=== PATIENT | female | born 1935 | race Caucasian/White ===

== ENCOUNTER 2023-09-09 15:32 | Emergency (ER) | payer MEDICARE ==
--- NOTE | 2023-09-09 15:41 | ERPHSYRPT ---
- History of Present Illness Time Seen by Provider: 09/09/23 15:41 Source: patient Exam Limitations: no limitations Physician History: This is an 88-year-old white female patient who has a history of atrial fibrillation on Eliquis and verapamil, hypertension and gastroesophageal reflux disease and was diagnosed with left-sided pneumonia 6 days ago. She is on Augmentin and doxycycline orally. Overall, patient states that her symptoms have improved. 1 example is she is breathing better and she does not any longer have a cough. However she feels weak and has no appetite. She denies chest pain. She denies shortness of breath and she denies body aches. Her room air oxygenation saturation level is 97 to 98% on room air. Timing/Duration: day(s) (6) Severity: mild (To moderate) Associated Symptoms: weakness, No nausea, No vomiting, No abdominal pain, No shortness of breath, No chest pain, No fever Allergies/Adverse Reactions: No Known Drug Allergies Allergy (Verified 09/09/23 15:52) Home Medications: Amoxicillin/Potassium Clav [Amox Tr-K Clv 875-125 mg Tab] 1 tab PO BID 09/09/23 [History] Apixaban [Eliquis] 1 tab PO BID 09/09/23 [History] Benzonatate 1 cap PO Q8H PRN PRN 09/09/23 [History] Clopidogrel Bisulfate [Plavix] 1 tab PO DAILY 09/09/23 [History] Doxycycline Hyclate 100 mg [Vibramycin 100 MG] 1 cap PO BID 09/09/23 [History] Fluoxetine HCl 1 tab PO DAILY 09/09/23 [History] Hydroxyzine HCl 25 mg [Atarax 25 mg] 1 tab PO HS PRN 09/09/23 [History] Ipratropium/Albuterol Sulfate [Combivent Respimat Inhal [place]] 1 puff PO Q4HWA 09/09/23 [History] Losartan Potassium [Cozaar] 1 tab PO DAILY 09/09/23 [History] Omeprazole 1 cap PO BID 09/09/23 [History] Verapamil HCl [Verapamil Sr] 1 tab PO DAILY 09/09/23 [History] Travel Risk - International Travel Have you traveled outside of the country in past 3 weeks: No - Coronavirus Screening Are you exhibiting any of the following symptoms?: No Close contact with a COVID-19 positive Pt in past 14-21 Days: No - Review of Systems Constitutional: Weakness Eyes: No Symptoms Ears, Nose, & Throat: No Symptoms Respiratory: No Symptoms Cardiac: No Symptoms Abdominal/Gastrointestinal: Appetite Changes, No Abdominal Pain, No Nausea, No Vomiting, No Diarrhea Genitourinary Symptoms: No Symptoms Musculoskeletal: No Symptoms Skin: No Symptoms Neurological: No Symptoms Psychological: No Symptoms Endocrine: No Symptoms Hematologic/Lymphatic: No Symptoms Immunological/Allergic: No Symptoms All Other Systems: Reviewed and Negative - Past Medical History Pertinent Past Medical History: Yes - Past Surgical History Past Surgical History: Yes - Nursing Vital Signs Nursing Vital Signs: Initial Vital Signs Temperature 98.5 F 09/09/23 16:00 Pulse Rate 81 09/09/23 16:00 Respiratory Rate 21 09/09/23 16:00 Blood Pressure 114/76 09/09/23 16:00 O2 Sat by Pulse Oximetry 98 09/09/23 16:00 Pain Scale Pain Intensity 0 - Physical Exam General Appearance: no apparent distress, alert Eye Exam: PERRL/EOMI, post op pupil defect (L) Ears, Nose, Throat Exam: normal ENT inspection, moist mucous membranes Neck Exam: normal inspection, non-tender, supple, full range of motion Respiratory Exam: normal breath sounds, lungs clear, airway intact, No chest tenderness, No respiratory distress Cardiovascular Exam: regular rate/rhythm, normal heart sounds, normal peripheral pulses Gastrointestinal/Abdomen Exam: soft, normal bowel sounds, No tenderness Pelvic Exam: not done Rectal Exam: not done Back Exam: normal inspection, normal range of motion, No CVA tenderness, No vertebral tenderness Extremity Exam: normal inspection, normal range of motion, pelvis stable Neurologic Exam: alert, oriented x 3, cooperative, operations officer II-XII nml as tested, normal mood/affect, nml cerebellar function, nml station & gait, sensation nml Skin Exam: normal color, warm, dry Lymphatic Exam: No adenopathy SpO2 Interpretation: normal O2 Delivery: Room Air - Course Nursing assessment & vital signs reviewed: Yes EKG Interpreted by Me: RATE (78), NORMAL AXIS, LAFB, NORMAL INTERVALS, Right Bundle Branch Block, Other (No acute ischemic changes on today's twelve-lead EKG.) Ordered Tests: Active Orders 24 hr Category Date Time Status Narcotics Agent STAT Care 09/09/23 16:24 Active EKG-ER Only STAT Care 09/09/23 16:23 Active IV Insertion STAT Care 09/09/23 16:23 Active Pulse Oximetry (ED) STAT Care 09/09/23 16:23 Active CBC W DIFF Stat Lab 09/09/23 16:25 Completed CMP Stat Lab 09/09/23 16:35 Completed CULTURE,URINE Stat Lab 09/09/23 17:39 Received MAGNESIUM Stat Lab 09/09/23 16:35 Completed MONO SCREEN Stat Lab 09/09/23 Completed NT PRO BNPII Stat Lab 09/09/23 16:35 Completed TROPONIN Q4H Lab 09/09/23 16:35 Completed TROPONIN Q4H Lab 09/09/23 20:30 Ordered TROPONIN Q4H Lab 09/10/23 00:30 Ordered UA W/RFX UR CULTURE Stat Lab 09/09/23 17:39 Completed Medication Summary Discontinued Medications Generic Name Dose Route Start Last Admin Trade Name Freq PRN Reason Stop Dose Admin Sodium Chloride 1,000 mls @ 999 mls/hr 09/09/23 16:23 09/09/23 17:47 Sodium Chloride 0.9% 1000 Ml IV 09/09/23 17:23 Infused .Q1H1M STA Infusion Sodium Chloride Confirm 09/09/23 16:45 Sodium Chloride 0.9% 1000 Ml Administered 09/09/23 16:46 Dose 1,000 mls @ ud .ROUTE .STK-MED ONE Lab/Rad Data: Laboratory Result Diagrams 09/09/23 16:25 09/09/23 16:35 Laboratory Results 09/09/23 09/09/23 09/09/23 Range/Units Unknown 17:39 17:00 WBC (4.0-10.5) x10^3/uL RBC (4.1-5.4) x10^6/uL Hgb (12.0-16.0) g/dL Hct (35-47) % MCV (78-100) fL MCH (26-32) pg MCHC (32-36) g/dL RDW (11.5-14.0) % Plt Count (150-450) x10^3/uL MPV (7.5-11.0) fL Gran % (36.0-66.0) % Immature Gran % (Auto) (0.00-0.4) % Nucleat RBC Rel Count (0.00-0.1) % Eos # (Auto) (0-0.5) x10^3/uL Immature Gran # (Auto) (0.00-0.03) x10^3u/L Absolute Lymphs (auto) (1.0-4.6) x10^3/uL Absolute Monos (auto) (0.0-1.3) x10^3/uL Absolute Nucleated RBC (0.00-0.01) x10^3u/L Lymphocytes % (24.0-44.0) % Monocytes % (0.0-12.0) % Eosinophils % (0.00-5.0) % Basophils % (0.0-0.4) % Absolute Granulocytes (1.4-6.9) x10^3/uL Basophils # (0-0.4) x10^3/uL Sodium (137-145) mmol/L Potassium (3.5-5.1) mmol/L Chloride (98-107) mmol/L Carbon Dioxide (22-30) mmol/L Anion Gap (5-15) MEQ/L BUN (7-17) mg/dL Creatinine (0.52-1.04) mg/dL Estimated GFR ML/MIN Glucose (74-106) mg/dL Calcium (8.4-10.2) mg/dL Magnesium (1.6-2.3) mg/dL Total Bilirubin (0.2-1.3) mg/dL AST (14-36) U/L ALT (0-35) U/L Alkaline Phosphatase (38-126) U/L Troponin I (0.000-0.034) ng/mL NT-Pro-B Natriuret Pep (<300) pg/mL Serum Total Protein (6.3-8.2) g/dL Albumin (3.5-5.0) g/dL Urine Color Yellow (Yellow) Urine Appearance Cloudy A (Clear) Urine pH 6.0 (4.6-8.0) Ur Specific [place] 1.020 (1.005-1.030) Urine Protein Trace A (Negative) Urine Glucose (UA) Negative (Negative) mg/dL Urine Ketones Negative (Negative) Urine Blood Negative (Negative) Urine Nitrite Negative (Negative) Urine Bilirubin Negative (Negative) Urine Urobilinogen 0.2 (0.2) mg/dL Ur Leukocyte Esterase Trace A (Negative) U Hyaline Cast (Auto) NONE SEEN (0-2) /LPF Urine Microscopic RBC 0-2 (0-5) /HPF Urine Microscopic WBC 3-5 (0-5) /HPF Ur Epithelial Cells Many A (None Seen) /HPF Urine Bacteria None Seen (None Seen) /HPF Urine Yeast (Budding) Rare A (None Seen) /HPF Urine Culture Reflexed YES (NO) Monoscreen NEGATIVE (NEGATIVE) Influenza Type A Ag NEGATIVE (NEGATIVE) Influenza Type B Ag NEGATIVE (NEGATIVE) RSV (PCR) NEGATIVE (NEGATIVE) SARS-CoV-2 (PCR) NEGATIVE (NEGATIVE) 09/09/23 09/09/23 09/09/23 Range/Units 16:35 16:35 16:25 WBC 8.3 (4.0-10.5) x10^3/uL RBC 3.78 L (4.1-5.4) x10^6/uL Hgb 11.3 L (12.0-16.0) g/dL Hct 34.9 L (35-47) % MCV 92.3 (78-100) fL MCH 29.9 (26-32) pg MCHC 32.4 (32-36) g/dL RDW 12.8 (11.5-14.0) % Plt Count 331 (150-450) x10^3/uL MPV 10.0 (7.5-11.0) fL Gran % 81.8 H (36.0-66.0) % Immature Gran % (Auto) 4.7 H (0.00-0.4) % Nucleat RBC Rel Count 0.0 (0.00-0.1) % Eos # (Auto) 0.05 (0-0.5) x10^3/uL Immature Gran # (Auto) 0.39 H (0.00-0.03) x10^3u/L Absolute Lymphs (auto) 0.70 L (1.0-4.6) x10^3/uL Absolute Monos (auto) 0.34 (0.0-1.3) x10^3/uL Absolute Nucleated RBC 0.00 (0.00-0.01) x10^3u/L Lymphocytes % 8.4 L (24.0-44.0) % Monocytes % 4.1 (0.0-12.0) % Eosinophils % 0.6 (0.00-5.0) % Basophils % 0.4 (0.0-0.4) % Absolute Granulocytes 6.82 (1.4-6.9) x10^3/uL Basophils # 0.03 (0-0.4) x10^3/uL Sodium 139 (137-145) mmol/L Potassium 4.8 (3.5-5.1) mmol/L Chloride 111 H (98-107) mmol/L Carbon Dioxide 21 L (22-30) mmol/L Anion Gap 12.3 (5-15) MEQ/L BUN 23 H (7-17) mg/dL Creatinine 1.06 H (0.52-1.04) mg/dL Estimated GFR 51.2 ML/MIN Glucose 111 H (74-106) mg/dL Calcium 8.7 (8.4-10.2) mg/dL Magnesium 1.5 L (1.6-2.3) mg/dL Total Bilirubin 0.50 (0.2-1.3) mg/dL AST 21 (14-36) U/L ALT 14 (0-35) U/L Alkaline Phosphatase 109 (38-126) U/L Troponin I < 0.012 (0.000-0.034) ng/mL NT-Pro-B Natriuret Pep 3370 (<300) pg/mL Serum Total Protein 5.6 L (6.3-8.2) g/dL Albumin 3.0 L (3.5-5.0) g/dL Urine Color (Yellow) Urine Appearance (Clear) Urine pH (4.6-8.0) Ur Specific [place] (1.005-1.030) Urine Protein (Negative) Urine Glucose (UA) (Negative) mg/dL Urine Ketones (Negative) Urine Blood (Negative) Urine Nitrite (Negative) Urine Bilirubin (Negative) Urine Urobilinogen (0.2) mg/dL Ur Leukocyte Esterase (Negative) U Hyaline Cast (Auto) (0-2) /LPF Urine Microscopic RBC (0-5) /HPF Urine Microscopic WBC (0-5) /HPF Ur Epithelial Cells (None Seen) /HPF Urine Bacteria (None Seen) /HPF Urine Yeast (Budding) (None Seen) /HPF Urine Culture Reflexed (NO) Monoscreen (NEGATIVE) Influenza Type A Ag (NEGATIVE) Influenza Type B Ag (NEGATIVE) RSV (PCR) (NEGATIVE) SARS-CoV-2 (PCR) (NEGATIVE) - Progress Progress: improved, re-examined Progress Note: 09/09/23 16:53 This patient's medical issue is 1 of moderate complexity. Level complex in the work-up performed is based on review of the patient's past medical history, review the patient's medication list, review the patient drug allergy list, history present illness and physical findings on examination. The work-up in this patient includes placement of intravenous line, infusion of 1 L normal saline solution, twelve-lead EKG, troponin level, magnesium level, CBC, CMP and urinalysis. 09/09/23 19:18 I reviewed and interpreted the patient's lab work. With exception of an elevated BNP, the remainder of the patient's lab work shows no acute, or emergent findings. I did provide the patient with 40 mg of intravenous Lasix here in the emergency department. Patient will be discharged home with instructions to follow-up with her primary care provider tomorrow, 09/10/2023, by phone to make arranges for follow-up appointment and further evaluation and management. Counseled pt/family regarding: lab results, diagnosis, need for follow-up Medical Desision Making - Independent Historian Additional History obtained from: Child - Diagnostic Testing Diagnostic test were ordered, analyzed, and reviewed by me: Yes - Risk of complications Low Risk: Low risk of morbidity from additional dx testing or treatment - Departure Departure Disposition: Home Clinical Impression: Weakness, Elevated brain natriuretic peptide (BNP) level Condition: Stable Critical Care Time: No Referrals: Provider,Unknown [Primary Care Provider] - Follow up/PCP as directed Additional Instructions: Call your primary care provider tomorrow, 09/10/2023, to make arrangements for follow-up appointment the next 3 days. Discussed with them the fact that I did give you a dose of Lasix which is a diuretic to remove fluid from your body. Discussed with them whether or not they want you to continue with this as an outpatient at your follow-up appointment. Continue your antibiotics as prescribed.
[2023-09-09 16:15] VITALS: TEMP 98.5
[2023-09-09 16:38] LABS: Absolute Neutrophil Ct (ANC) 6.82 x10^3/uL (1.4-6.9); BASOPHIL % 0.4 % (0.0-0.4); Basophil (Absolute #) 0.03 x10^3/uL (0-0.4); Eosinophil % 0.6 % (0.00-5.0); Eosinophil (Absolute #) 0.05 x10^3/uL (0-0.5); Hematocrit 34.9 % (35-47); Hemoglobin 11.3 g/dL (12.0-16.0); IMMATURE GRAN # 0.39 x10^3u/L (0.00-0.03); IMMATURE GRAN % 4.7 % (0.00-0.4); Lymphocytes % 8.4 % (24.0-44.0); Mean Cell Volume 92.3 fL (78-100); Mean Corpuscular Hemoglobin 29.9 pg (26-32); Mean Corpuscular Hgb Concent. 32.4 g/dL (32-36); Monocyte (Absolute #) 0.34 x10^3/uL (0.0-1.3); Monocytes % 4.1 % (0.0-12.0); Neutrophil % 81.8 % (36.0-66.0); Platelet Count 331 x10^3/uL (150-450); Red Blood Count 3.78 x10^6/uL (4.1-5.4); Red Cell Distribution Width 12.8 % (11.5-14.0); White Blood Count 8.3 x10^3/uL (4.0-10.5)
[2023-09-09] MEDS ORDERED: Sodium Chloride 0.9% 1000 ML 1,000 ML ONE (16:45)
[2023-09-09] MEDS: Sodium Chloride 0.9% 1000 ML 1,000 ML IV STA (16:46)
[2023-09-09 17:14] LABS: ANION GAP 12.3 MEQ/L (5-15); BILIRUBIN,TOTAL 0.5 mg/dL (0.2-1.3); Calcium 8.7 mg/dL (8.4-10.2); Creatinine 1 1.06 mg/dL (0.52-1.04); EST GLOMERULAR FILTRATION RATE 51.2 ML/MIN; MAGNESIUM 1.5 mg/dL (1.6-2.3); Potassium 4.8 mmol/L (3.5-5.1); Total Protein 5.6 g/dL (6.3-8.2)
[2023-09-09 17:41] LABS: INFLUENZA A NEGATIVE (NEGATIVE); INFLUENZA B NEGATIVE (NEGATIVE); RESPIRATORY SYNCTIAL VIRUS NEGATIVE (NEGATIVE); SARS-CoV-2 Xpert Express NEGATIVE (NEGATIVE)
[2023-09-09 17:54] LABS: Appearance Cloudy (Clear); Bacteria None Seen /HPF (None Seen); Bilirubin Negative (Negative); Blood Negative (Negative); Epithelial Cells Many /HPF (None Seen); Glucose, Urine Negative (Negative); Hyaline Casts NONE SEEN /LPF (0-2); Ketones Negative (Negative); Leukocyte Esterase Trace (Negative); Nitrite Negative (Negative); Protein,Urine Dip Trace (Negative); RBC 0-2 /HPF (0-5); Urobilinogen 0.2 mg/dL (0.2)
[2023-09-09 18:00] LABS: ADD URINE CULTURE? YES (NO); Budding Yeast Rare /HPF (None Seen)
[2023-09-09 18:59] VITALS: BP 139/82; PULSE 85; RESP 22; O2SAT 98
[2023-09-09] MEDS ORDERED: Lasix 40 MG/4 ML ONE (19:30)
[2023-09-09] MEDS: Lasix 40 MG/4 ML IV ONE (19:33)
== END 2023-09-09 19:57 | disposition home or self-care (01) ==
LOC: ED 15:32
DX: R53.1 Weakness (principal); R79.89 Other specified abnormal findings of blood chemistry; I10 Essential (primary) hypertension; Z79.01 Long term (current) use of anticoagulants; Z79.02 Long term (current) use of antithrombotics/antiplatelets; Z79.899 Other long term (current) drug therapy; Z20.828 Contact with and (suspected) exposure to other viral communicable diseases
CPT/HCPCS: 0241U; 36000; 36415; 80053; 81001; 83735; 83880; 84484; 85025; 86308; 87086; 93005; 93041; 94760; 96360; 96374; 99284; J1940

== ENCOUNTER 2024-10-17 13:17 | Emergency (ER) | payer MEDICARE ==
[2024-10-17 13:40] VITALS: PULSE 75; TEMP 98.4; O2SAT 98
[2024-10-17 14:38] LABS: Absolute Neutrophil Ct (ANC) 4.21 x10^3/uL (1.56-6.13); BASOPHIL % 0.5 % (0.1-1.2); Basophil (Absolute #) 0.03 x10^3/uL (0.01-0.08); Eosinophil % 1.8 % (0.7-5.8); Hematocrit 35.6 % (34.1-44.9); Hemoglobin 11.2 g/dL (11.2-15.7); IMMATURE GRAN # 0.03 x10^3u/L (0.001-0.031); IMMATURE GRAN % 0.5 % (0.001-0.429); Lymphocyte (Absolute #) 0.85 x10^3/uL (1.18-3.74); Lymphocytes % 15.3 % (19.3-51.7); Mean Cell Volume 94.9 fL (79.4-94.8); Mean Corpuscular Hemoglobin 29.9 pg (25.6-32.2); Mean Corpuscular Hgb Concent. 31.5 g/dL (32.2-35.5); Mean Platelet Volume 11.6 fL (9.4-12.3); Monocyte (Absolute #) 0.32 x10^3/uL (0.24-0.86); Monocytes % 5.8 % (4.7-12.5); Neutrophil % 76.1 % (34.0-71.1); Platelet Count 179 x10^3/uL (182-369); Red Blood Count 3.75 x10^6/uL (3.93-5.22); Red Cell Distribution Width 13.2 % (11.7-14.4); White Blood Count 5.5 x10^3/uL (3.98-10.04)
--- NOTE | 2024-10-17 14:47 | ERPHSYRPT ---
- History of Present Illness Time Seen by Provider: 10/17/24 14:45 Source: patient, family Exam Limitations: no limitations Patient Subjective Stated Complaint: PT states "I am tired. I was sick about a month ago and ever since I just have no pep. I feel like I get short of breath but my oxygen saturation is always good." Triage Nursing Assessment: PT presented alert and oriented X 3, skin pwd. Pt ambulates with an upright steady gait, able to speak in clear full sentences. Pt resting comfortably on the cot. Physician History: PT states "I am tired. I was sick about a month ago and ever since I just have no pep. I feel like I get short of breath but my oxygen saturation is always good." Timing/Duration: week(s) Associated Symptoms: shortness of breath, malaise, weakness, No nausea, No vomiting, No abdominal pain, No heartburn, No diaphoresis, No cough, No chills, No chest pain, No fever, No headaches, No loss of appetite, No rash, No syncope, No seizure Allergies/Adverse Reactions: No Known Drug Allergies Allergy (Verified 09/09/23 15:52) Home Medications: Apixaban [Eliquis] 1 tab PO BID 09/09/23 [History] Clopidogrel Bisulfate [Plavix] 1 tab PO DAILY 09/09/23 [History] Fluoxetine HCl 1 tab PO DAILY 09/09/23 [History] Hydroxyzine HCl 25 mg [Atarax 25 mg] 1 tab PO HS PRN 09/09/23 [History] Ipratropium/Albuterol Sulfate [Combivent Respimat Inhal [place]] 1 puff PO Q4HWA 09/09/23 [History] Losartan Potassium [Cozaar] 1 tab PO DAILY 09/09/23 [History] Omeprazole 1 cap PO BID 09/09/23 [History] Verapamil HCl [Verapamil Sr] 1 tab PO DAILY 09/09/23 [History] Hx Tetanus, Diphtheria Vaccination/Date Given: Yes Hx Influenza Vaccination/Date Given: Yes Hx Pneumococcal Vaccination/Date Given: Yes Immunizations Up to Date: No Travel Risk - International Travel Have you traveled outside of the country in past 3 weeks: No - Emerging Infectious Disease Are you exhibiting symptoms associated with any current EIDs: No - Review of Systems Constitutional: Lethargy, Weakness, No Fever, No Chills Eyes: No Symptoms Ears, Nose, & Throat: No Symptoms Respiratory: No Cough, No Dyspnea Cardiac: No Chest Pain, No Edema, No Syncope Abdominal/Gastrointestinal: No Abdominal Pain, No Nausea, No Vomiting, No Diarrhea Genitourinary Symptoms: No Dysuria Musculoskeletal: No Back Pain, No Neck Pain Skin: No Rash Neurological: No Dizziness, No Focal Weakness, No Sensory Changes Psychological: No Symptoms Endocrine: No Symptoms All Other Systems: Reviewed and Negative - Past Medical History Pertinent Past Medical History: Yes ENT History: Cataracts Cardiac History: Arrhythmia, Congestive Heart Failure, Hypertension Respiratory History: Pneumonia Musculoskeletal History: Arthritis GI Medical History: GERD, Hernia Psycho-Social History: Depression Other Medical History: A-FIB - Past Surgical History Past Surgical History: Yes Cardiac: Cardiac Catheterization, Cardiac Stent, Pacemaker Gastrointestinal: Appendectomy, Hernia Repair Other Surgical History: LEFT KNEE, RIGHT HIP REPLACEMENT - Social History Smoking Status: Never smoker Exposure to second hand smoke: No Drug Use: none Patient Lives Alone: No - Social Determinants of Health Will the patient participate in the screening: Declined to provide - Nursing Vital Signs Nursing Vital Signs: Initial Vital Signs Pulse Rate 77 10/17/24 13:30 Respiratory Rate 24 10/17/24 13:30 Blood Pressure 107/74 10/17/24 13:30 O2 Sat by Pulse Oximetry 97 10/17/24 13:30 Pain Scale Pain Intensity 0 - Physical Exam General Appearance: no apparent distress, alert Eye Exam: PERRL/EOMI, eyes nml inspection Ears, Nose, Throat Exam: normal ENT inspection, TMs normal, pharynx normal, moist mucous membranes Neck Exam: normal inspection, non-tender, supple, full range of motion Respiratory Exam: normal breath sounds, lungs clear, No respiratory distress Cardiovascular Exam: regular rate/rhythm, normal heart sounds, normal peripheral pulses Gastrointestinal/Abdomen Exam: soft, normal bowel sounds, No tenderness, No mass Back Exam: normal inspection, normal range of motion, No CVA tenderness, No vertebral tenderness Extremity Exam: normal inspection, normal range of motion, pelvis stable Neurologic Exam: alert, oriented x 3, cooperative, normal mood/affect, nml cerebellar function, nml station & gait, sensation nml, No motor deficits Skin Exam: normal color, warm, dry, No rash Lymphatic Exam: No adenopathy SpO2 Interpretation: normal SpO2: 98 O2 Delivery: Room Air - Course Nursing assessment & vital signs reviewed: Yes EKG Interpreted by Me: Non-specific ST Changes, Other (Atrial paced rhythm) - Radiology Exams Chest X-ray Interpretation: Interpreted by me, Reviewed by me, No Pneumonia (COPD changes) Ordered Tests: Active Orders 24 hr Category Date Time Status Casino Enforcement Agent STAT Care 10/17/24 14:20 Active EKG-ER Only STAT Care 10/17/24 14:19 Active CHEST 2 VIEWS (PA AND LAT) Stat Exams 10/17/24 14:20 Taken CBC W DIFF Stat Lab 10/17/24 14:15 Completed CMP Stat Lab 10/17/24 14:15 Completed Lab/Rad Data: Laboratory Result Diagrams 10/17/24 14:15 10/17/24 14:15 Laboratory Results 10/17/24 10/17/24 10/17/24 Range/Units 14:34 14:34 14:15 WBC (3.98-10.04) x10^3/uL RBC (3.93-5.22) x10^6/uL Hgb (11.2-15.7) g/dL Hct (34.1-44.9) % MCV (79.4-94.8) fL MCH (25.6-32.2) pg MCHC (32.2-35.5) g/dL RDW (11.7-14.4) % Plt Count (182-369) x10^3/uL MPV (9.4-12.3) fL Gran % (34.0-71.1) % Immature Gran % (Auto) (0.001-0.429) % Nucleat RBC Rel Count (0.00-0.2) % Eos # (Auto) (0.04-0.36) x10^3/uL Immature Gran # (Auto) (0.001-0.031) x10^3u/L Absolute Lymphs (auto) (1.18-3.74) x10^3/uL Absolute Monos (auto) (0.24-0.86) x10^3/uL Absolute Nucleated RBC (0.00-0.012) x10^3u/L Lymphocytes % (19.3-51.7) % Monocytes % (4.7-12.5) % Eosinophils % (0.7-5.8) % Basophils % (0.1-1.2) % Absolute Granulocytes (1.56-6.13) x10^3/uL Basophils # (0.01-0.08) x10^3/uL Sodium 141 (135-145) mmol/L Potassium 5.0 (3.5-5.1) mmol/L Chloride 113 H (98-107) mmol/L Carbon Dioxide 21 L (22-30) mmol/L Anion Gap 12.2 (5-15) MEQ/L BUN 27 H (7-17) mg/dL Creatinine 1.12 H (0.52-1.04) mg/dL Estimated GFR 47.6 ML/MIN Glucose 73 L (74-106) mg/dL Calcium 9.3 (8.4-10.2) mg/dL Total Bilirubin 0.70 (0.2-1.3) mg/dL AST 27 (14-36) U/L ALT 14 (0-35) U/L Alkaline Phosphatase 115 (38-126) U/L Serum Total Protein 6.2 L (6.3-8.2) g/dL Albumin 3.7 (3.5-5.0) g/dL Influenza Type A Ag NEGATIVE (NEGATIVE) Influenza Type B Ag NEGATIVE (NEGATIVE) RSV (PCR) NEGATIVE (NEGATIVE) SARS-CoV-2 (PCR) NEGATIVE (NEGATIVE) Group A Strep Antibody NOT DETECTED (NEGATIVE) 10/17/24 Range/Units 14:15 WBC 5.5 (3.98-10.04) x10^3/uL RBC 3.75 L (3.93-5.22) x10^6/uL Hgb 11.2 (11.2-15.7) g/dL Hct 35.6 (34.1-44.9) % MCV 94.9 H (79.4-94.8) fL MCH 29.9 (25.6-32.2) pg MCHC 31.5 L (32.2-35.5) g/dL RDW 13.2 (11.7-14.4) % Plt Count 179 L (182-369) x10^3/uL MPV 11.6 (9.4-12.3) fL Gran % 76.1 H (34.0-71.1) % Immature Gran % (Auto) 0.5 H (0.001-0.429) % Nucleat RBC Rel Count 0.0 (0.00-0.2) % Eos # (Auto) 0.10 (0.04-0.36) x10^3/uL Immature Gran # (Auto) 0.03 (0.001-0.031) x10^3u/L Absolute Lymphs (auto) 0.85 L (1.18-3.74) x10^3/uL Absolute Monos (auto) 0.32 (0.24-0.86) x10^3/uL Absolute Nucleated RBC 0.00 (0.00-0.012) x10^3u/L Lymphocytes % 15.3 L (19.3-51.7) % Monocytes % 5.8 (4.7-12.5) % Eosinophils % 1.8 (0.7-5.8) % Basophils % 0.5 (0.1-1.2) % Absolute Granulocytes 4.21 (1.56-6.13) x10^3/uL Basophils # 0.03 (0.01-0.08) x10^3/uL Sodium (135-145) mmol/L Potassium (3.5-5.1) mmol/L Chloride (98-107) mmol/L Carbon Dioxide (22-30) mmol/L Anion Gap (5-15) MEQ/L BUN (7-17) mg/dL Creatinine (0.52-1.04) mg/dL Estimated GFR ML/MIN Glucose (74-106) mg/dL Calcium (8.4-10.2) mg/dL Total Bilirubin (0.2-1.3) mg/dL AST (14-36) U/L ALT (0-35) U/L Alkaline Phosphatase (38-126) U/L Serum Total Protein (6.3-8.2) g/dL Albumin (3.5-5.0) g/dL Influenza Type A Ag (NEGATIVE) Influenza Type B Ag (NEGATIVE) RSV (PCR) (NEGATIVE) SARS-CoV-2 (PCR) (NEGATIVE) Group A Strep Antibody (NEGATIVE) - Progress Progress: unchanged Counseled pt/family regarding: lab results, diagnosis, need for follow-up, rad results Medical Desision Making - Independent Historian Additional History obtained from: Family - Diagnostic Testing Diagnostic test were ordered, analyzed, and reviewed by me: Yes Radiological Interpretation: Interpreted by me, Reviewed by me - Risk of complications Low Risk: Low risk of morbidity from additional dx testing or treatment - Departure Departure Disposition: Home Clinical Impression: Weakness CHF (congestive heart failure), NYHA class III Qualifiers: Congestive heart failure type: combined Congestive heart failure chronicity: chronic Qualified Code(s): I50.42 - Chronic combined systolic (congestive) and diastolic (congestive) heart failure Condition: Stable Critical Care Time: No Referrals: DAYANA LADD MD [Primary Care Provider] - Follow up with PCP 5 days Instructions: Heart Failure, Fatigue (DC), Weakness ED, Heart failure in adults - Discharge instructions Additional Instructions: Discharge/Care Plan JIMENA JULIAN was seen on 10/17/24 in the Emergency Room. The patient was counseled regarding Diagnosis,Lab results, Imaging studies, need for follow up and when to return to the Emergency Room. Prescriptions given: Discharge Note I have spoken with the patient and/or caregivers. I have explained the patient's condition, diagnosis and treatment plan based on the information available to me at this time. I have answered the patient's and/or caregiver's questions and addressed any concerns. The patient and/or caregivers have as good understanding of the patient's diagnosis, condition and treatment plan as can be expected at this point. The vital signs have been stable. The patient's condition is stable and appropriate for discharge from the emergency department. The patient will pursue further outpatient evaluation with the primary care physician or other designated or consulting physician as outlined in the discharge instructions. The patient and/or caregivers are agreeable to this plan of care and follow-up instructions have been explained in detail. The patient and/or caregivers have received these instruction. The patient/and or caregivers are aware that any significant change in condition or worsening of symptoms should prompt an immediate return to this or the closest emergency department or call 911. JIMENA JULIAN was seen on 10/17/24 n the Emergency Room. At that time you were treated for an emergent condition, during your visit Laboratory, Radiology and/or other procedures may have been ordered. It is very important that you follow-up with your Primary Care Physician DAYANA LADD MD within the next 24-48 hours to review your Emergency Room visit and the final results of testing that was ordered. Some test results such as Urine Cultures, Blood Cultures, and other cultures if ordered will not be finalized for 24-48 hours. If you do not have a Primary Care Provider please call the medical records department at [phone] to obtain a copy of your results or you may sign into our patient portal to obtain these results by visiting us @ [email or web address] and completing the following steps: 1. Click on the Patient Portal link 2. Click the Patient Self Enrollment Link to complete the enrollment form and entering your 3. Once the enrollment form is completed you will receive an email with a temporary ID and password at the email address you provided. 4. Next choose a user name and password. Your user name must be at least 4 characters long and your password must be at least 4 characters long. 5. Choose a security question from the list and provide your answer to the question. If you already have signed into the Health Portal you may access your Health Care Information 13/05 by the following steps: 1. Login to our website @ [email or web address] 2. Enter your original user name and password. FAQS The [facility] Health Portal is an online tool that contains your Lab Results, Radiology Reports, Visit History, Discharge Instructions and Health Summary Lab and Radiology Results will not be available for 72 hours on the portal. The Portal is a secure site, passwords are encryted and URLs are re-written so they cannot be copied and pasted. You and authorized family members are the only ones who can access your Portal. Also there is a timeout feature that protects your information if you leave the Portal page open. If you have technical difficulty please use the Contact Us link on the page this will allow you to submit any questions you have regarding the Portal or you may contact the Medical Record Department at [phone].
[2024-10-17 14:54] LABS: ALBUMIN 3.7 g/dL (3.5-5.0); ANION GAP 12.2 MEQ/L (5-15); BILIRUBIN,TOTAL 0.7 mg/dL (0.2-1.3); Calcium 9.3 mg/dL (8.4-10.2); Creatinine 1 1.12 mg/dL (0.52-1.04); EST GLOMERULAR FILTRATION RATE 47.6 ML/MIN; Total Protein 6.2 g/dL (6.3-8.2)
[2024-10-17 15:07] VITALS: BP 148/85; RESP 17
[2024-10-17 15:16] LABS: INFLUENZA A NEGATIVE (NEGATIVE); INFLUENZA B NEGATIVE (NEGATIVE); RESPIRATORY SYNCTIAL VIRUS NEGATIVE (NEGATIVE); SARS-CoV-2 Xpert Express NEGATIVE (NEGATIVE)
--- NOTE | 2024-10-17 20:20 | XRAY ---
Indication: Weakness. Comparison: None PA/lateral chest hyperinflated with minimal left base subsegmental atelectasis/scarring. Remaining lungs clear. Heart not enlarged with left pacemaker. Bony thorax intact with osteopenia and mild degenerative changes. Impression: Nonacute hyperinflated chest with chronic features.
== END 2024-10-17 15:52 | disposition home or self-care (01) ==
LOC: ED 13:17
DX: R53.1 Weakness (principal); I50.42 Chronic combined systolic (congestive) and diastolic (congestive) heart failure; Z79.899 Other long term (current) drug therapy; Z79.01 Long term (current) use of anticoagulants
CPT/HCPCS: 0241U; 36415; 71046; 80053; 85025; 87651; 93005; 93041; 99284

== ENCOUNTER 2024-12-05 10:45 | Emergency (ER) | payer MEDICARE ==
[2024-12-05 10:58] VITALS: TEMP 99.3
[2024-12-05 11:34] LABS: Absolute Neutrophil Ct (ANC) 7.96 x10^3/uL (1.56-6.13); BASOPHIL % 0.1 % (0.1-1.2); Basophil (Absolute #) 0.01 x10^3/uL (0.01-0.08); Eosinophil (Absolute #) 0 x10^3/uL (0.04-0.36); Hematocrit 34.1 % (34.1-44.9); IMMATURE GRAN # 0.06 x10^3u/L (0.001-0.031); IMMATURE GRAN % 0.6 % (0.001-0.429); Lymphocyte (Absolute #) 0.79 x10^3/uL (1.18-3.74); Lymphocytes % 8.4 % (19.3-51.7); Mean Cell Volume 92.7 fL (79.4-94.8); Mean Corpuscular Hemoglobin 29.9 pg (25.6-32.2); Mean Corpuscular Hgb Concent. 32.3 g/dL (32.2-35.5); Mean Platelet Volume 11.8 fL (9.4-12.3); Monocyte (Absolute #) 0.57 x10^3/uL (0.24-0.86); Monocytes % 6.1 % (4.7-12.5); Neutrophil % 84.8 % (34.0-71.1); Platelet Count 151 x10^3/uL (182-369); Red Blood Count 3.68 x10^6/uL (3.93-5.22); Red Cell Distribution Width 12.8 % (11.7-14.4); White Blood Count 9.4 x10^3/uL (3.98-10.04)
--- NOTE | 2024-12-05 11:43 | ERPHSYRPT ---
- History of Present Illness Time Seen by Provider: 12/05/24 11:22 Source: patient, EMS Exam Limitations: no limitations Patient Subjective Stated Complaint: pt c/o of loss of appetite over a period of time, cough, and generalized weakness, pt's oxygen was 89% for EMS Triage Nursing Assessment: Pt brought to the ER by EMS, vitals wnl, denies pain, pt states that she has been losing weight because she isn't eating, states that she doesn't have an appetite and she drinks lots of water, pulses normal, skin n/w/d, breathing better after Duo Neb treatment, doesn't appear to be in any distress Physician History: 89-year-old female with history of congestive heart failure, atrial fibrillation with pacemaker on Eliquis, hypertension presented in the ER via EMS with complaints of generalized weakness fatigue tiredness, coughing off and on for the last 2 to 3 days. Patient reports she was having a coughing spell earlier and could not catch her breath. On EMS arrival her oxygen saturation was 89%, got DuoNeb and currently sats in mid 90s on room air. She denies any chest pain, does report decreased oral intake, loss of appetite and some weight loss. No vomiting or diarrhea. Currently patient is not in any distress. No sick contact. Allergies/Adverse Reactions: No Known Drug Allergies Allergy (Verified 12/05/24 10:57) Home Medications: Apixaban [Eliquis] 1 tab PO BID 09/09/23 [History] Clopidogrel Bisulfate [Plavix] 1 tab PO DAILY 09/09/23 [History] Fluoxetine HCl 1 tab PO DAILY 09/09/23 [History] Hydroxyzine HCl 25 mg [Atarax 25 mg] 1 tab PO HS PRN 09/09/23 [History] Ipratropium/Albuterol Sulfate [Combivent Respimat Inhal [place]] 1 puff PO Q4HWA 09/09/23 [History] Losartan Potassium [Cozaar] 1 tab PO DAILY 09/09/23 [History] Omeprazole 1 cap PO BID 09/09/23 [History] Verapamil HCl [Verapamil Sr] 1 tab PO DAILY 09/09/23 [History] Hx Tetanus, Diphtheria Vaccination/Date Given: Yes Hx Influenza Vaccination/Date Given: Yes Hx Pneumococcal Vaccination/Date Given: Yes Travel Risk - International Travel Have you traveled outside of the country in past 3 weeks: No - Emerging Infectious Disease Are you exhibiting symptoms associated with any current EIDs: No - Review of Systems Constitutional: Fever, Fatigue, Weakness Eyes: No Symptoms Ears, Nose, & Throat: Nose Congestion Respiratory: Cough, Dyspnea Cardiac: No Symptoms Abdominal/Gastrointestinal: No Symptoms Genitourinary Symptoms: No Symptoms Musculoskeletal: Myalgias Skin: No Symptoms Neurological: No Symptoms Endocrine: No Symptoms - Past Medical History Pertinent Past Medical History: Yes ENT History: Cataracts Cardiac History: Arrhythmia, Congestive Heart Failure, Hypertension Respiratory History: Pneumonia Musculoskeletal History: Arthritis GI Medical History: GERD, Hernia Psycho-Social History: Depression Other Medical History: A-FIB - Past Surgical History Past Surgical History: Yes Cardiac: Cardiac Catheterization, Cardiac Stent, Pacemaker Gastrointestinal: Appendectomy, Hernia Repair Other Surgical History: LEFT KNEE, RIGHT HIP REPLACEMENT - Social History Smoking Status: Never smoker Exposure to second hand smoke: No Drug Use: none - Social Determinants of Health Will the patient participate in the screening: Yes Do you worry about a steady place to live?: No Do you have any problems with any of the following?: No known problems In the past 12 months,have you had to go without utilities?: No Transportation Issues: No Has anyone in your support network made you feel unsafe?: No Have you or anyone in your house had to go w/o enough food: No - Nursing Vital Signs Nursing Vital Signs: Initial Vital Signs Temperature 99.3 F 12/05/24 10:48 Pulse Rate 85 12/05/24 10:48 Blood Pressure 125/60 12/05/24 10:48 O2 Sat by Pulse Oximetry 100 12/05/24 10:48 Pain Scale Pain Intensity 0 - Physical Exam General Appearance: no apparent distress, alert Eye Exam: PERRL/EOMI Ears, Nose, Throat Exam: hearing grossly normal, normal pharynx Neck Exam: normal inspection, non-tender, supple, full range of motion Respiratory Exam: normal breath sounds, lungs clear Cardiovascular/Chest Exam: normal heart sounds, regular rate/rhythm Abdominal/Gastrointestinal Exam: soft, normal bowel sounds, No tenderness Extremity Exam: non-tender Neurologic Exam: alert, oriented x 3, cooperative Skin Exam: normal color SpO2 Interpretation: normal SpO2: 100 O2 Delivery: Room Air - Course EKG Interpreted by Me: RATE (80, paced rhythm), NORMAL AXIS, LAFB, Right Bundle Branch Block, Non-specific ST Changes Ordered Tests: Active Orders 24 hr Category Date Time Status State Comptroller STAT Care 12/05/24 11:23 Active EKG-ER Only STAT Care 12/05/24 11:22 Active CHEST 1 VIEW (PORTABLE) Stat Exams 12/05/24 11:22 Taken CBC W DIFF Stat Lab 12/05/24 11:00 Completed CMP Stat Lab 12/05/24 11:00 Completed MAGNESIUM Stat Lab 12/05/24 11:00 Completed NT PRO BNPII Stat Lab 12/05/24 11:00 Completed TROPONIN Q4H Lab 12/05/24 11:00 Completed TROPONIN Q4H Lab 12/05/24 15:30 Ordered TROPONIN Q4H Lab 12/05/24 19:30 Ordered Medication Summary Generic Name Dose Route Start Last Admin Trade Name Freq PRN Reason Stop Dose Admin Sodium Chloride 500 mls @ 500 mls/hr 12/05/24 13:19 Sodium Chloride 0.9% 500 Ml IV 12/05/24 14:18 .Q1H ONE Lab/Rad Data: Laboratory Result Diagrams 12/05/24 11:00 12/05/24 11:00 Laboratory Results 12/05/24 12/05/24 12/05/24 Range/Units 11:28 11:00 11:00 WBC (3.98-10.04) x10^3/uL RBC (3.93-5.22) x10^6/uL Hgb (11.2-15.7) g/dL Hct (34.1-44.9) % MCV (79.4-94.8) fL MCH (25.6-32.2) pg MCHC (32.2-35.5) g/dL RDW (11.7-14.4) % Plt Count (182-369) x10^3/uL MPV (9.4-12.3) fL Gran % (34.0-71.1) % Immature Gran % (Auto) (0.001-0.429) % Nucleat RBC Rel Count (0.00-0.2) % Eos # (Auto) (0.04-0.36) x10^3/uL Immature Gran # (Auto) (0.001-0.031) x10^3u/L Absolute Lymphs (auto) (1.18-3.74) x10^3/uL Absolute Monos (auto) (0.24-0.86) x10^3/uL Absolute Nucleated RBC (0.00-0.012) x10^3u/L Lymphocytes % (19.3-51.7) % Monocytes % (4.7-12.5) % Eosinophils % (0.7-5.8) % Basophils % (0.1-1.2) % Absolute Granulocytes (1.56-6.13) x10^3/uL Basophils # (0.01-0.08) x10^3/uL Sodium 138 (135-145) mmol/L Potassium 4.4 (3.5-5.1) mmol/L Chloride 107 (98-107) mmol/L Carbon Dioxide 17 L (22-30) mmol/L Anion Gap 17.0 H (5-15) MEQ/L BUN 29 H (7-17) mg/dL Creatinine 1.19 H (0.52-1.04) mg/dL Estimated GFR 44.3 ML/MIN Glucose 139 H (74-106) mg/dL Calcium 9.0 (8.4-10.2) mg/dL Magnesium 1.5 L (1.6-2.3) mg/dL Total Bilirubin 1.20 (0.2-1.3) mg/dL AST 32 (14-36) U/L ALT 20 (0-35) U/L Alkaline Phosphatase 92 (38-126) U/L Troponin I 0.021 (0.000-0.033) ng/mL NT-Pro-B Natriuret Pep 2730 (<300) pg/mL Serum Total Protein 6.0 L (6.3-8.2) g/dL Albumin 3.8 (3.5-5.0) g/dL Influenza Type A Ag POSITIVE A (NEGATIVE) Influenza Type B Ag NEGATIVE (NEGATIVE) RSV (PCR) NEGATIVE (NEGATIVE) SARS-CoV-2 (PCR) NEGATIVE (NEGATIVE) 12/05/24 Range/Units 11:00 WBC 9.4 (3.98-10.04) x10^3/uL RBC 3.68 L (3.93-5.22) x10^6/uL Hgb 11.0 L (11.2-15.7) g/dL Hct 34.1 (34.1-44.9) % MCV 92.7 (79.4-94.8) fL MCH 29.9 (25.6-32.2) pg MCHC 32.3 (32.2-35.5) g/dL RDW 12.8 (11.7-14.4) % Plt Count 151 L (182-369) x10^3/uL MPV 11.8 (9.4-12.3) fL Gran % 84.8 H (34.0-71.1) % Immature Gran % (Auto) 0.6 H (0.001-0.429) % Nucleat RBC Rel Count 0.0 (0.00-0.2) % Eos # (Auto) 0 L (0.04-0.36) x10^3/uL Immature Gran # (Auto) 0.06 H (0.001-0.031) x10^3u/L Absolute Lymphs (auto) 0.79 L (1.18-3.74) x10^3/uL Absolute Monos (auto) 0.57 (0.24-0.86) x10^3/uL Absolute Nucleated RBC 0.00 (0.00-0.012) x10^3u/L Lymphocytes % 8.4 L (19.3-51.7) % Monocytes % 6.1 (4.7-12.5) % Eosinophils % 0.0 L (0.7-5.8) % Basophils % 0.1 (0.1-1.2) % Absolute Granulocytes 7.96 H (1.56-6.13) x10^3/uL Basophils # 0.01 (0.01-0.08) x10^3/uL Sodium (135-145) mmol/L Potassium (3.5-5.1) mmol/L Chloride (98-107) mmol/L Carbon Dioxide (22-30) mmol/L Anion Gap (5-15) MEQ/L BUN (7-17) mg/dL Creatinine (0.52-1.04) mg/dL Estimated GFR ML/MIN Glucose (74-106) mg/dL Calcium (8.4-10.2) mg/dL Magnesium (1.6-2.3) mg/dL Total Bilirubin (0.2-1.3) mg/dL AST (14-36) U/L ALT (0-35) U/L Alkaline Phosphatase (38-126) U/L Troponin I (0.000-0.033) ng/mL NT-Pro-B Natriuret Pep (<300) pg/mL Serum Total Protein (6.3-8.2) g/dL Albumin (3.5-5.0) g/dL Influenza Type A Ag (NEGATIVE) Influenza Type B Ag (NEGATIVE) RSV (PCR) (NEGATIVE) SARS-CoV-2 (PCR) (NEGATIVE) - Progress Progress: improved, re-examined Air Movement: good Progress Note: 12/05/24 13:15 89-year-old is evaluated in the ER for flulike symptoms with worsening cough and a sats of 89% on room air at home prior to arrival. Patient got 1 DuoNeb and route and saturation remained in the mid 90s throughout stay in the ER. Chest x-ray no obvious infiltrative process, questionable opacity on the right side with no consolidation. Has normal white count, chemistries fairly unremarkable, has influenza A and will start her on Tamiflu She has a history of CHF with a BNP of 27,000, will be careful giving her fluids, recommended increase hydration. Patient is not in any distress, lungs fairly clear to auscultation, do not think needs another neb treatment or any other workup, discussed the results of workup with treatment with patient and family along with outpatient follow-up which they understand and agree. Stable for discharge. 12/05/24 13:17 Blood Culture(s) Obtained: No Antibiotics given: No Counseled pt/family regarding: lab results, diagnosis, need for follow-up, rad results Medical Desision Making - Independent Historian Additional History obtained from: Child - Diagnostic Testing Diagnostic test were ordered, analyzed, and reviewed by me: Yes Radiological Interpretation: Interpreted by me, Reviewed by me - Risk of complications The pt has a mod risk of morbidity or mortality based on: Need for prescription drug management - Departure Departure Disposition: Home Clinical Impression: Influenza A, General weakness Condition: Stable Critical Care Time: No Referrals: DAYANA LADD MD [Primary Care Provider] - Follow up with PCP 1 day Instructions: Flu in adults - Discharge instructions Additional Instructions: Crease hydration, take Tylenol as needed, take neb treatments which you have at home as recommended. Follow-up with primary care for reevaluation. Return to ER for any worsening. Prescriptions: Oseltamivir 75 mg [Tamiflu 75MG Capsule] 75 mg PO BID #10 cap
[2024-12-05 12:00] LABS: ALBUMIN 3.8 g/dL (3.5-5.0); BILIRUBIN,TOTAL 1.2 mg/dL (0.2-1.3); Creatinine 1 1.19 mg/dL (0.52-1.04); EST GLOMERULAR FILTRATION RATE 44.3 ML/MIN; MAGNESIUM 1.5 mg/dL (1.6-2.3); Potassium 4.4 mmol/L (3.5-5.1)
[2024-12-05 12:19] LABS: INFLUENZA B NEGATIVE (NEGATIVE); RESPIRATORY SYNCTIAL VIRUS NEGATIVE (NEGATIVE); SARS-CoV-2 Xpert Express NEGATIVE (NEGATIVE)
[2024-12-05 12:21] LABS: INFLUENZA A POSITIVE (NEGATIVE)
[2024-12-05] MEDS ORDERED: Sodium Chloride 0.9% 500 ML 500 ML IV ONE (14:02)
[2024-12-05] MEDS: Sodium Chloride 0.9% 500 ML 500 ML IV ONE (14:03)
[2024-12-05 15:06] VITALS: BP 89/42; PULSE 75; RESP 23; O2SAT 97
--- NOTE | 2024-12-05 23:35 | XRAY ---
Indication: Cough. Comparison: October 17, 2024 Portable chest again hyperinflated with minimal bibasilar subsegmental atelectasis/scarring. No focal infiltrate, consolidation, or large effusion. Heart not enlarged again with left pacemaker. Bony thorax intact again with osteopenia and mild degenerative changes. No new/acute findings.
== END 2024-12-05 15:20 | disposition home or self-care (01) ==
LOC: ED 10:45
DX: J10.1 Influenza due to other identified influenza virus with other respiratory manifestations (principal); R53.1 Weakness; R53.83 Other fatigue; R05.1 Acute cough; I11.0 Hypertensive heart disease with heart failure; I50.9 Heart failure, unspecified; Z79.01 Long term (current) use of anticoagulants; Z79.02 Long term (current) use of antithrombotics/antiplatelets; Z79.899 Other long term (current) drug therapy
CPT/HCPCS: 0241U; 36415; 71045; 80053; 83735; 83880; 84484; 85025; 93005; 93041; 96360; 99285; 99284